=== PATIENT | male | born 1955 | race Caucasian/White ===

== ENCOUNTER 2016-11-12 14:27 | Outpatient (CLI) | payer OTHER ==
[2016-11-12 17:12] LABS: Hematocrit 50.6 % (42.0-52.0); Mean Platelet Volume 6.9 fL (7.4-10.4); Red Blood Cell (RBC) Count 5.65 mill/uL (4.70-6.10); White Blood Cell (WBC) Count 4.2 thou/uL (4.8-10.8)
[2016-11-12 17:34] LABS: Hemoglobin A1c 8.1 % (4.0-6.0)
[2016-11-12 17:47] LABS: Band 3 % (5-11); Neutrophil 69 % (42-75)
[2016-11-12 22:10] LABS: Microalbumin Urine 177.5 mg/dL (0.5-50.0)
[2016-11-13 08:30] LABS: ALT (SGPT) 19 U/L (0-55); AST (SGOT) 15 U/L (5-34); Alkaline Phosphatase 53 U/L (40-150); Anion Gap 17 mmol/L (10-20); BUN (Urea Nitrogen) 13 mg/dL (8.4-25.7); Bilirubin, Total 0.9 mg/dL (0.2-1.2); Calc. Creatinine Clearance 0 mL/min (70-130); Calcium 9.6 mg/dL (7.8-10.44); Carbon Dioxide 24 mmol/L (23-31); Chloride 104 mmol/L (98-107); Estimated GFR-MDRD 63; Globulin 2.5 g/dL (2.4-3.5); LDL Cholesterol, Calculated 84 mg/dL; Protein, Total 6.9 g/dL (5.8-8.1)
== END 2016-11-12 14:28 | disposition home or self-care (01) ==
LOC: LABLEX 14:27
PROVIDERS: ATTEND Family Medicine
DX: E11.65 Type 2 diabetes mellitus with hyperglycemia (principal); I10 Essential (primary) hypertension; E78.5 Hyperlipidemia, unspecified; N40.1 Benign prostatic hyperplasia with lower urinary tract symptoms; I25.10 Atherosclerotic heart disease of native coronary artery without angina pectoris
CPT/HCPCS: 80053; 80061; 82043; 83036; 84153; 84443; 85025

== ENCOUNTER 2019-10-25 08:29 | Outpatient (CLI) | payer OTHER ==
--- NOTE | 2019-10-25 09:16 | RAD ---
CHEST 2 VIEWS: Date: 10/25/2019 HISTORY: CHF. Dyspnea. FINDINGS: No comparison. Cardiac silhouette is upper limits of normal in size. Pulmonary vasculature is slightly engorged with widespread reticulonodular interstitial prominence and mild patchy bibasilar infiltrates, left great er than right. No lobar consolidation or evidence of pneumothorax. IMPRESSION: Pulmonary vascular congestion, consistent with mild CHF. POS: [facility]
== END 2019-10-25 08:30 | disposition home or self-care (01) ==
LOC: BURRAD 08:29
PROVIDERS: ATTEND Nurse Practitioner
DX: I50.31 Acute diastolic (congestive) heart failure (principal); R09.89 Other specified symptoms and signs involving the circulatory and respiratory systems
CPT/HCPCS: 71046